=== PATIENT | female | born 1995 | race Caucasian/White ===

== ENCOUNTER 2020-06-30 17:59 | Emergency (ER) | payer SELFPAY ==
[2020-06-30] MEDS ORDERED: Sulfameth/Trimethoprim DS 800-160mg TAB ONE (19:01)
[2020-06-30] MEDS ORDERED: Bupivacaine HCl 0.5%/Epinephrine 1:200,000/PF 30 ml Vial ONE (19:01)
== END 2020-06-30 19:41 | disposition home or self-care (01) ==
LOC: MADERS 17:59
DX: L03.011 Cellulitis of right finger (principal); F17.210 Nicotine dependence, cigarettes, uncomplicated
CPT/HCPCS: 26011; J0670